=== PATIENT | male | born 1960 | race African-American/Black ===

== ENCOUNTER 2019-11-12 14:03 | Inpatient (IN) | payer OTHER ==
[~2019-11-12] VITALS: Ht 165.1 cm; Wt 76.0 kg
[~2019-11-12 14:03] MED LIST: METHOCARBAMOL500 M2 PO; NAPROSYN500 MG PO
[2019-11-12 14:04] VITALS: BP 170/94
[2019-11-12 14:31] LABS: BASOPHILS 0.7 % (0.0-2.0); HEMOGLOBIN 15.9 gm/dL (14.0-18.0); MCH 34.8 pg (26.0-34.0); MCHC 35.3 g/dL (28.0-37.0); MCV 98.6 fL (80.0-100.0); MONOCYTES 11.1 % (1.0-8.0); PLATELET COUNT 285 thou/uL (150-400); POLYS 54.2 % (36.0-66.0); RBC 4.56 mil/uL (4.50-6.00); RDW 12.8 % (10.5-14.5); WBC 7.4 thou/uL (4.0-11.0)
--- NOTE | 2019-11-12 14:32 | NUR ---
CHARGE NURSE, FELI NOTIFIED ABOUT THE NEED FOR A 1:1 DUE TO SI COMMENTS MADE BY THE PT
[2019-11-12 14:40] LABS: ANION GAP 19 mmol/L (7-16); BUN 18 mg/dL (7-18); CALCIUM 8.8 mg/dL (8.5-10.1); CHLORIDE 102 mmol/L (98-107); CO2 19 mmol/L (21-32); CREATININE 1.5 mg/dL (0.7-1.3); GLUCOSE 117 mg/dL (74-106); SODIUM 140 mmol/L (136-145)
--- NOTE | 2019-11-12 14:55 | NUR ---
1:1 ASSIGNED TO THE PT AND CONTINUOUS OBSERVATION SHEET PROVIDED TO THE 1:1 SITTER ([id number]) FOR DOCUMENTATION
[2019-11-12 15:04] LABS: ALBUMIN 4.6 g/dL (3.4-5.0); LIPASE 143 U/L (73-393); SGOT 54 U/L (15-37); SGPT 41 U/L (30-65); TOTAL BILIRUBIN 0.6 mg/dL (0.2-1.0); TROPONIN-I <0.06 ng/mL (<0.06)
[2019-11-12 15:19] LABS: SALICYLATE < 2.8 mg/dL (2.8-20.0)
[2019-11-12 15:30] LABS: URINE BILIRUBIN NEGATIVE (Negative); URINE BLOOD 1+ (Negative); URINE CLARITY CLEAR; URINE COLOR YELLOW; URINE GLUCOSE-RANDOM* NEGATIVE (Negative); URINE KETONES NEGATIVE (Negative); URINE LEUKOCYTES-REFLEX NEGATIVE (Negative); URINE NITRITE-REFLEX NEGATIVE (Negative); URINE PROTEIN (DIPSTICK) 2+ (Negative); URINE SPECIFIC GRAVITY 1.025 (1.005-1.035); URINE UROBILINOGEN 0.2 E.U./dl (0.2-1.0)
[2019-11-12 15:40] LABS: AMP/METHAMP Negative (Negative); BARBITURATES Negative (Negative); BENZODIAZEPINES Negative (Negative); COCAINE Negative (Negative); METHADONE Negative (Negative); OPIATES Negative (Negative); PCP Negative (Negative)
[2019-11-12 15:48] LABS: BACTERIA-REFLEX None Seen /HPF (None Seen); CASTS None Seen /LPF (None Seen); CRYSTALS None Seen /LPF (None Seen); SQUAMOUS None Seen /LPF (0-3); URINE RBC 0-2 Rare /HPF (0-2); URINE WBC-REFLEX 0-5 Rare /HPF (0-5)
--- NOTE | 2019-11-12 22:05 | NUR ---
[facility] CALLED TO SAY THEY WILL NOT ACCEPT WITHOUT COVID RESULT BACK. INFORMED THAT WE WANTED PATIENT ASSESSED TO DETERMINE IF HE WOULD STAY IN HOUSE ONCE COVID RESULTS ARE BACK OR WHETHER WE NEEDED TO CONTINUE LOOKING INTO PLACEMENT ELSEWHERE
[2019-11-12 23:30] VITALS: BP 168/84
--- NOTE | 2019-11-13 01:25 | NUR ---
PATIENT WILL BE BOARDING IN THE EMERGENCY DEPARTMENT UNTIL INPATIENT COVID TEST IS RESULTED. NOW, LAB STATES THAT THEY CAN RUN INPATIENT COVID TESTS AND THIS PATIENT'S COVID TEST WILL BE RUN WITH THE 0700 INPATIENT BATCH AND WILL BE RESULTED ACCORDINGLY. DR. SCHULTZ HAS AGREED TO ACCEPT PATIENT TO [facility] AFTER COVID TEST RESULT COMES BACK NEGATIVE
--- NOTE | 2019-11-13 08:44 | EKG ---
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 : 1960 Requested By: Martina Betancourt Order Number: [id number] MD: Suleman Lai Measurements Intervals [place] Rate: 110 P: 66 VA: 138 QRS: 42 QRSD: 92 T: 22 QT: 343 QTc: 465 Interpretive Statements Sinus tachycardia ST elevation, probable normal early repolarization pattern Compared to ECG 01/08/2016 20:25:50 No significant change was found Electronically Signed On 11-13-2019 8:44:04 CDT by Suleman Lai [email or web address] <ELECTRONICALLY SIGNED> By: Suleman Lai MD, [facility] 11/13/19 0844 [id number] Suleman Lai MD, [facility] /EPI
[2019-11-13] MEDS ORDERED: LEXAPRO20 MG PO (09:36)
[2019-11-13] MEDS ORDERED: DESYREL150 MG PO (09:37)
[2019-11-13] MEDS ORDERED: CELEBREX 200 M200 MG PO (09:37)
[2019-11-13 18:29] VITALS: BP 155/84
--- NOTE | 2019-11-13 18:33 | NUR ---
PT ARRIVED TO UNIT. PT VS TAKEN. PT STATED ER WOULD GIVE HIM SOMETHING TO EAT. PT DIDN'T GET A TRAY FOR DINNER. PT WAS GIVEN BOX LUNCH ONCE ARRIVED TO FLOOR.
[2019-11-13 19:09] VITALS: BP 165/102
--- NOTE | 2019-11-13 23:14 | NUR ---
Pt admitted to the unit on previous shift just before shift change. Admitted for SI/HI. States no plan, just feelings of helplessness and hopelessness resulting in thoughts that he would like to just not wake up. Per notes, pt was unable to contract for safety in the ER but states he will not try to hurt himself on the unit. Hx of COPD and cirrhosis. Chronic dry cough r/t COPD and years of smoking. Says that this caused him to lose his job because of people's fear of COVID even though he tested negative. Also has Hx of ETOH abuse - currently in treatment, but tested positive for ETOH in the ER, prompting CIWA to be ordered. Psych Hx: depression and anxiety. Pt is A/O x 4 and cooperative with assessments. HS, BS normal. LS diminished throughout. Worried about his property as it is not logged on this unit. Call put in to ER in an effor tto find property, but no call back yet.
[2019-11-14 07:55] VITALS: BP 111/67
--- NOTE | 2019-11-14 08:00 | NUR ---
PT UP IN DINING ROOM. PT STATED HE WOULD LIKE SOME MEDICATION FOR COUGH. HE STATED THAT HE WAS UP AT NIGHT COUGHING. NO SPUTUM PRODUCTION. PT LUNGS CLEAR. PT STATED HE HAS ASTHMA AND ON ALBUTEROL AND MEDICATIONS FOR RESP. UPDATED MED LIST. PT STATED HE HAS PAIN OF 6 TO CHEST FROM COUGHING. PT STATED IT FEELS LIKE A BRUISE. PT UP AD ESTER. PT HAS MASK ON. PT STATED LBM YESTERDAY AND HE FEELS A LITTLE CONSTIPATED DUE TO SMALL AMT OF BM.
[2019-11-14 08:30] VITALS: BP 111/67
[2019-11-14] MEDS ORDERED: SPIRIVA18 MCG INH (08:57)
[2019-11-14] MEDS ORDERED: PROAIR HFA8.5 GM INH (08:58)
[2019-11-14] MEDS ORDERED: SYMBICORT160 MCG/4. INH (08:59)
[2019-11-14] MEDS ORDERED: XIFAXAN550 M1 PO (09:02)
--- NOTE | 2019-11-14 09:39 | EKG ---
[facility] [place] [address] ELECTROCARDIOGRAM REPORT Name: JENNIFER MONACO [facility] Room #: [facility] ADM IN M.R.#: [id number] Admission: 11/12/19 Attend Phys: Marcelo Saucedo DO Discharge: Date of : 62 Report #: [id number] THIS REPORT FOR: cc: HI - No family physician/PCP FAM - No family physician/PCP Suleman Lai MD [facility] THIS REPORT FOR: //name// [facility] Test Date: 2019-11-14 Test Time: 07:15:04 Pat Name: JENNIFER MONACO Department: Room: [facility] A Gender: M 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 : 1960 Requested By: Melvi Pérez Order Number: [id number] MD: Suleman Lai Measurements Intervals [place] Rate: 70 P: 71 DE: 143 QRS: 54 QRSD: 92 T: 30 QT: 414 QTc: 447 Interpretive Statements Sinus rhythm Atrial premature complex ST segment elevation, probably early repolarization Baseline wander in lead(s) V6 Compared to ECG 11/12/2019 14:41:30 Atrial premature complex(es) now present Electronically Signed On 11-14-2019 9:38:50 CDT by Suleman Lai [email or web address] <ELECTRONICALLY SIGNED> By: Suleman Lai MD, FAC 11/14/1937 4 4 Suleman Lai MD, FAC /EPI
--- NOTE | 2019-11-14 10:12 | NUR ---
PT RECIEVED ALBUTEROL 2.5MG FOR COUGHING. PT STATED HE HAS BEEN COUGHING ALOT AND KEEPING HIM UP AT NIGHT.
--- NOTE | 2019-11-14 12:25 | NUR ---
ADM TESSELON PEARLS 100MG PO FOR COUGH.
[2019-11-14 13:17] LABS: FOLIC ACID 11.3 ng/mL (8.6-58.9)
--- NOTE | 2019-11-14 14:03 | NUR ---
SW completed the intake assesment and TP for this pt.
--- NOTE | 2019-11-14 14:37 | NUR ---
Pt reported that he lives wiht his nephew who does not practice social distancing or wears a mask, and this provides him with extreme anxiety. Pt has been seen at [facility], with Dr Sparks and a therapist named pierce. His PCP is Dr Aaron at [facility] too. Pt has been isolated and feels fultile.
--- NOTE | 2019-11-14 16:00 | NUR ---
Pt particiapted in group and reported that he was struggling with accomodating others opinions of himself and practicing assertive communication
--- NOTE | 2019-11-14 17:54 | NUR ---
ADM MOM FOR CONSTIPATION. OFFERED PRUNE JUICE, PT REFUSED.
[2019-11-14 19:33] VITALS: BP 153/86
[2019-11-14 19:35] LABS: CALCIUM 8.3 mg/dL (8.5-10.1); CREATININE 1.3 mg/dL (0.7-1.3); POTASSIUM 3.8 mmol/L (3.5-5.1)
--- NOTE | 2019-11-15 01:48 | NUR ---
Pt alert and oriented. Pt was in the dayroom sitting amongst fellow pts at time of assessment. Pt was cooperative with assessment. Sociable. Pt reported having some anxiety and depression. Pt reported sometimes having thoughts of hurting himself but not other people. Pt seemed to have a feeling of hopelessness. Verbalized being through a lot in life but did not go into details. Nursing inquired if pt had plan of how he would hurt himself, pt voiced "I would choose a less painful way, like taking many pill". Nursing inquired about coping and pt resists such thoughts, pt voiced "liquor". Pt also voiced that RN is prbably too young to understand what liquor is. Pt encouraged to approach RNs' whenever he's having such thoughts of hurting himself. Pt came out at about midnight, reported to nursing that he was having difficulty breathing, and that he also wanted snacks. RT called, and breathing trt given. Snacks also provided. Pt requested if he could have something else ofr sleep. Trazodone given, as well as hydroxyzine for anxiety. Pt voiced that he should be able to sleep without taking meds for it. Pt now laying in bed. Will continue to monitor.
[2019-11-15 07:52] VITALS: BP 127/88
[2019-11-15 15:28] LABS: URINE BILIRUBIN NEGATIVE (Negative); URINE BLOOD NEGATIVE (Negative); URINE CLARITY CLEAR; URINE COLOR YELLOW; URINE GLUCOSE-RANDOM* NEGATIVE (Negative); URINE KETONES TRACE (Negative); URINE LEUKOCYTES NEGATIVE (Negative); URINE NITRITE NEGATIVE (Negative); URINE PROTEIN (DIPSTICK) NEGATIVE (Negative); URINE UROBILINOGEN 0.2 E.U./dl (0.2-1.0)
--- NOTE | 2019-11-15 16:30 | NUR ---
Assumed care 0700. Early in the shift patient requested RT due to shortness of air/coughing. Also was given Tessalon Carlos PRN, later changed to guaifenesin DM given PRN once. Patient says when he sticks his tongue out and coughs it causes him to vomit. Instructed to show nurse any emesis. Stated he slept poorly last night, recorded 5.4 hours sleep. He is conversant with peers, though has many comments about interest in peers. He was reminded nurse could not divulge information about other patients and to focus on his issues. He did attend groups with participation. He willingly gave up his cross necklace which was put into his right shoe in the locker. He denies pain other than lung pain when needing RT. He said he was feeling so hopeless with his health issues, out of work, has children he worries how he will care for them that he wanted to jump out of the window. Verbally he was a bit dramatic while telling his story of frustration/depression. Denies AH/VH.
[2019-11-15 19:30] VITALS: BP 165/102
[2019-11-15 22:28] VITALS: BP 138/86
--- NOTE | 2019-11-16 03:01 | NUR ---
Care of patient assumed at 191. Patient is in the hallway and asks to speak with this nurse right away. Patient reports that he has been vomitting whenever he has food in his stomach and goes through a coughing spell. Patient is instructed to notify staff of emisis, and not flush it until visualized. A/O x 4. HS, LS, BS normal. Reports pain 7/10 in ribs from coughing. Reports to staff x 3 of emisis. Each time white froth is seen in toilet. Suspect that the Mucinex that was started is loosening secretions and increasing post nasal drip. Compliant with HS meds. Has difficulty getting to sleep due to coughing. Gets Mucinex at 2130 and again at 0215.
[2019-11-16 06:13] LABS: HEMATOCRIT 41.9 % (42.0-52.0); HEMOGLOBIN 14.5 gm/dL (14.0-18.0); MCH 34.4 pg (26.0-34.0); MCHC 34.7 g/dL (28.0-37.0); PLATELET COUNT 174 thou/uL (150-400); RBC 4.23 mil/uL (4.50-6.00); RDW 12.8 % (10.5-14.5); WBC 4.2 thou/uL (4.0-11.0)
[2019-11-16 07:10] LABS: ALBUMIN 3.9 g/dL (3.4-5.0); CALCIUM 9.1 mg/dL (8.5-10.1); CREATININE 1.4 mg/dL (0.7-1.3); POTASSIUM 4.3 mmol/L (3.5-5.1); TOTAL BILIRUBIN 0.6 mg/dL (0.2-1.0); TOTAL PROTEIN 7.3 g/dL (6.4-8.2)
[2019-11-16 08:58] LABS: ABSOLUTE NEUTROPHILS 1.9 thou/uL (1.4-8.2); ANISOCYTOSIS 1+
[2019-11-16 09:06] VITALS: BP 143/89
[2019-11-16 20:06] LABS: SYPHILIS AB Non Reactive (Non Reactive)
[2019-11-16 20:34] VITALS: BP 148/91
--- NOTE | 2019-11-17 03:01 | NUR ---
Care of patient assumed at 191. Patient is in the day room watching TV. Cooperative with assessment. HS, LS, BS norm. Denies SI/HI. Denies pain currently, saying it usually only hurts when he coughs a lot. Reports still vomitting when he coughs. Says he now has breathing treatments ordered. Compliant with meds. Gets cough syrup a short time later, then again at 0245 when he awakens due to coughing.
[2019-11-17 08:10] VITALS: BP 148/91
--- NOTE | 2019-11-17 09:05 | NUR ---
PT UP AD ESTER. PT SHOWED THIS CASUALTY CLAIM ADJUSTER HIS LEFT ARM AND STATED HE WANTED SOME ICE TO PUT ON IT. PT LEFT FORARM IS A LITTLE BIT SWOLLEN THAT RT ARM. PT SHOWED THAT HE HAD AN IV TO LEFT HAND. PT ASKING FOR COUGH MEDICATION. PT LUNGS CLEAR. PT DIDN'T COMPLAIN OF ANY PAIN TO SHOULDER AT THIS TIME. LBM 11/15.
--- NOTE | 2019-11-17 09:30 | NUR ---
PT ALSO ASKING ABOUT IF HE CAN HAVE A SLEEP STUDY TONIGHT.
--- NOTE | 2019-11-17 11:19 | NUR ---
RT TX GIVEN PER REQUEST.
--- NOTE | 2019-11-18 05:15 | NUR ---
Pt alert and oriented x4. VSS RA. Pt took meds whole. PRn cough meds given as ordered. Pt reported having some anxiety and depression. Pt voiced that he threw up all his food. Nursing did not witness. Pt was in the dayroom at time of assessment, sitting among [facility] nurses. Pt came out at about midnight, requesting for his cough med. Nursing informed pt that it may not be time but was looking up last time med was given on emar. Pt beame very agitated and upset. Did yell out. Nursing took meds to pt, informned. Pt took meeds, came out few minutes later to apologize to nursing for his tone. Pt voiced that he is frustrated for not being allowed to go to his nephews today 11/18/19. He has alot of going on. Pt currently in bed sleeping. Will continue to monitor.
[2019-11-18 07:29] VITALS: BP 132/85
--- NOTE | 2019-11-18 11:25 | NUR ---
Assumed care at 0700. Med compliant except for few cc'c Lactulose. At first of shift patient was instructed to show this RN all/any emesis today. He indicated emesis ws in bathroom which was clear with foamy white bubbles in a large viejas. No food particles observed. He received PRN cough syrup and PRN respiratory therapy treatment early in AM. He was given choice of clothes to change into. He denies SI/HI/AH/VH. Then says if he were to leave too early before getting all he can out of this program for his issues he would most likely be suicidal. Since he has not been given a discharge date yet he was encouraged not to think about discharge at this time. He was encourged to focus on positive affirmations. He is disappointed yet understanding of not being able to go to his nephew's today. Reports having heard voices in the past but not today.
--- NOTE | 2019-11-18 15:47 | NUR ---
Patient came out of [employer] [employer] with emesis episode after coughing. Emesis was sawant/brown in color undigested food--he said it was the chicken from lunch. It is too soon for cough syrup. No other complaints mentioned. He returned to group.
[2019-11-18 20:14] VITALS: BP 167/93
--- NOTE | 2019-11-18 23:06 | NUR ---
PT RESTING IN BED UPON ARRIVAL TO SHIFT. PT NOT OBSERVED COUGHING BUT REPORTS CHEST DISCOMFORT FROM COUGHING, COUGH SYRUP PROVIDED AND TYLENOL. PT DID GO TO DINING ROOM FOR SNACK AND INTERACTED WITH MALE PEER. PT REPORTED FEELING DROWSY AND ATTRIBUTED IT TO HIS NEW MEDICATIONS. GOOD EYE CONTACT, STEADY GAIT, VERY THANKFUL TOWARDS STAFF.
--- NOTE | 2019-11-19 00:32 | NUR ---
PT AWAKENED C/O COUGH KEEPING HIM UP, HURTING HIS HEAD, EYES WATERING AND CHEST MUSCLES SORE. PT STATED THEY STOPPED HIS TESALON PEARLS AND CHANGED HIM TO COUGH SYRUP BUT NOT WORKING. PT REPORTED HAVING THIS COUGH FOR MONTHS. PT DENIED SEEING A PULM DR FOR HIS COPD.
[2019-11-19 07:45] VITALS: BP 119/66
--- NOTE | 2019-11-19 13:00 | NUR ---
Assumed care 0700. Lungs clear, denies SI/HI/AH/VH. Intermittently coughs, comes out of dayroom when coughs. was adked to go to his room with coughing spells. He assisted his roommate back to bed when roommate tried to get himself in bed and was about to fall. Pt. said he prevented roommate from falling-there was not enough time to call for help. Pt. says he has a lot on his mind. He was not open to seeking out community services for financial help. IE groceries, money for paying utilities. He wants to move out of his house because [place] the [place] neighborhood. No emesis reported. he declined roastbeef at dinner. turkey sandwich was obtained for his dinner which he said he ate. He doesn't socialize with peers. He makes references that he won't give the staff a hard time because they are nice to him.
[2019-11-19 19:33] VITALS: BP 120/76
--- NOTE | 2019-11-20 03:47 | NUR ---
ASSUMED CARE OF PT AT 1900HRS. PT IS AO AND LETS NEEDS BE KNOWN. PT IS UP AD ESTER. ASSESSMENT CHARTED. PT REPORTED COUGHING AND SOA. PRN RT AND COUGH MED GIVEN. PT WAS ABLE TO GET COMFORTABLE AND SLEEP PART OF THE SHIFT. VSS AND NO S/S OF ACUTE DISTRESS. WILL CONTINUE TO MONITOR.
[2019-11-20 07:37] VITALS: BP 116/69
--- NOTE | 2019-11-20 11:27 | NUR ---
DESCRIBES MOOD "TIRED" TODAY AND REPORTS DISRUPTED SLEEP D/T ROOMMATE MOANING AND YELLING OUT ALL NIGHT. DOES REPORT SLIGHT IMPROVEMENT OF COUGH-INFREQUENT DRY COUGH HEARD-NO NOTED OR REPORTED EPISODES OF VOMITTING AFTER COUGHING SO FAR THIS SHIFT. DENIES SI/SH/HI. DOES HAVE MULTIPLE SOMATIC COMPLAINTS/CONCERNS -REQUESTING A FLU SHOT.
[2019-11-20] MEDS ORDERED: VITAMIN B-12100 MC1 PO (19:05)
[2019-11-20] MEDS ORDERED: FOLIC ACID0.4 MG PO (19:05)
[2019-11-20] MEDS ORDERED: LACTULOSE20 GM/30 M PO (19:05)
[2019-11-20 20:00] VITALS: BP 138/86
[2019-11-21] MEDS ORDERED: WELLBUTRIN XL150 MG PO (08:43)
[2019-11-21] MEDS ORDERED: PEPCID20 MG PO (08:43)
[2019-11-21] MEDS ORDERED: VISTARIL 25 MG25 M1 PO (08:46)
[2019-11-21] MEDS ORDERED: SEROQUEL 100 M100 M1 PO (08:46)
[2019-11-21 09:05] VITALS: BP 129/72
[2019-11-21 09:53] VITALS: BP 129/72
--- NOTE | 2019-11-21 10:14 | NUR ---
Sw set up transportation via taxi to the destination requested by the pt. Sw set up f/u appt with PCP at [facility] [phone] Aaron 12/26/19 at 10 am and [facility] Dr Kidd [phone] 01/01/20 at 10:30 am.
--- NOTE | 2019-11-21 10:53 | NUR ---
Alert and orientated X4. Ambulating around unit with regular, steady gait without s/o distress. Conversing with staff and peers. States he is anxious and requesting lexipro, given with AM meds. Verbalizing plan to avoid alcohol and drugs and focusing on seeking employment and getting his life on track. Denies SI/HI. Breath sounds clear t/o, bilaterally equal. Reg HR auscultated. Color pink with brisk capillary refill and palpable peripheral pulses. No edema noted. Independent with voiding and cares. Active bowel sounds over soft, rounded abdomen. States he had BM yesterday. Declined miralax but took lactulose. Verbalized understanding of discharge instructions. Left unit at 1025 per WC with [employer] with belongings and prescriptions. Plan was to obtain additional belongings in security.
== END 2019-11-21 10:25 | disposition home or self-care (01) | DRG 885 ==
LOC: ER 14:03 → EROBS 23:33 → SBH 11-13 18:46
PROVIDERS: Hospitalist; Physician Assistant; Psychiatry & Neurology Psychiatry; ADMIT Psychiatry & Neurology Psychiatry; ATTEND Psychiatry & Neurology Psychiatry
DX: F39 Unspecified mood [affective] disorder (principal); R45.851 Suicidal ideations; I74.10 Embolism and thrombosis of unspecified parts of aorta; F33.2 Major depressive disorder, recurrent severe without psychotic features; R45.850 Homicidal ideations; E86.0 Dehydration; F10.10 Alcohol abuse, uncomplicated; Y90.9 Presence of alcohol in blood, level not specified; F17.210 Nicotine dependence, cigarettes, uncomplicated; J44.9 Chronic obstructive pulmonary disease, unspecified; F41.9 Anxiety disorder, unspecified; K21.9 Gastro-esophageal reflux disease without esophagitis; M19.90 Unspecified osteoarthritis, unspecified site; F29 Unspecified psychosis not due to a substance or known physiological condition; K74.60 Unspecified cirrhosis of liver; R45.1 Restlessness and agitation; Z79.899 Other long term (current) drug therapy; Z11.59 Encounter for screening for other viral diseases
CPT/HCPCS: 10880